=== PATIENT | female | born 1990 | race Caucasian/White ===

== ENCOUNTER → 2018-09-10 | Outpatient (CLI) | payer BC ==
--- NOTE | 2018-09-10 11:17 | Diagnostic Imaging Report ---
INDICATION: survey. TECHNIQUE: Multiple real-time grayscale images were obtained over the gravid uterus. COMPARISON: None FINDINGS: There is a single live fetus in breech presentation. heart rate was recorded at 138 beats per minute. Placenta is posterior. Amniotic fluid index is 13.2 cm. Cervical length is 3.5 cm. survey demonstrates kidneys, bladder and stomach to be unremarkable. The brain is unremarkable. There is a four-chamber heart. There is a three-vessel cord with normal insertion. The spine is unremarkable. Biometrical measurements are as follows: Biparietal 4.68 cm, age 20 weeks 2 days. Head circumference 18.88 cm, age 21 weeks 2 days. Abdominal circumference 16.09 cm, age 21 weeks 2 days. Femur length 3.65 cm, age 21 weeks 5 days. Sonographic estimate age: 21 weeks 1 days. Sonographic estimated date of delivery: 01/20/2019. Estimated Weight: 414 gm (+/- 60 gm). LMP percentile: 77%. heart rate: 138 beats per minute. number: 1 of 1. IMPRESSION: Single live IUP 21 weeks 1 day gestational age. The estimated date of confinement sonographically is 01/20/2019. Dictated by: Dictated on workstation # [id number]
== END ==
LOC: RAD 09:57
PROVIDERS: ATTEND Obstetrics & Gynecology
DX: Z36.89 Encounter for other specified antenatal screening (principal); Z3A.21 21 weeks gestation of pregnancy
CPT/HCPCS: 76805

== ENCOUNTER 2019-01-27 20:00 | Inpatient (IN) | payer BC ==
[~2019-01-27] VITALS: Ht 175.3 cm; Wt 106.7 kg
[~2019-01-27 20:00] MED LIST: D5 LR IV SOLUTION 1,000 ML IV ONE
--- NOTE | 2019-01-27 20:02 | NUR ---
JORGE MIRAMONTES presented to unit via ambulation from home, accompanied by , for INDUCTION. JORGE MIRAMONTES weighed, gowned, voided, and to bed. EFHM and TOCO applied, VS taken. JORGE MIRAMONTES oriented to bed controls, call light, TV, heat, and A/C controls.
[2019-01-27 20:14] VITALS: BP 141/90
[2019-01-27] MEDS ORDERED: PREN1TAB79 PO (20:45)
[2019-01-27] MEDS ORDERED: LACTATED RINGERS 1,000 ML IV SCH (20:48)
[2019-01-27] MEDS ORDERED: MISOPROSTOL 100 MCG (CYTOTEC) TAB PO ONE (21:00)
[2019-01-27] MEDS ORDERED: MINERAL OIL CONCENTRATE 99.9% 15 ML UDC TOP PRN (21:00)
[2019-01-27] MEDS ORDERED: TERBUTALINE INJ 1 MG/ML (BRETHINE) AMP SC PRN (21:00)
[2019-01-27 21:05] LABS: BASOPHILS % (AUTO) 0 % (0-10); EOSINOPHILS # (AUTO) 0.1 10^3/uL (0.0-0.3); EOSINOPHILS % (AUTO) 1 % (0-10); HEMATOCRIT 33 % (35-52); HEMOGLOBIN 11.6 G/DL (11.5-16.0); LYMPHOCYTES # (AUTO) 1.9 X 10^3 (1.0-4.0); LYMPHOCYTES % (AUTO) 16 % (12-44); MEAN CORPUSCULAR HEMOGLOBIN 31 PG (25-34); MEAN CORPUSCULAR HGB CONC 35 G/DL (32-36); MEAN CORPUSCULAR VOLUME 88 FL (80-99); MEAN PLATELET VOLUME 10.3 FL (7.4-10.4); MONOCYTES # (AUTO) 1.2 X 10^3 (0.0-1.0); MONOCYTES % (AUTO) 10 % (0-12); NEUTROPHILS # (AUTO) 8.9 X 10^3 (1.8-7.8); NEUTROPHILS % (AUTO) 73 % (42-75); PLATELET COUNT 229 10^3/uL (130-400); WHITE BLOOD COUNT 12.2 10^3/uL (4.3-11.0)
[2019-01-27 21:10] VITALS: BP 143/90
[2019-01-27] MEDS: D5 LR IV SOLUTION 1,000 ML IV SCH (21:13)
[2019-01-27] MEDS ORDERED: ZOLPIDEM 5 MG (AMBIEN) TAB PO PRN (21:15)
[2019-01-27] MEDS: CATHETER FLUSH 10 ML SYR IV SCH (22:48)
[2019-01-27 22:49] VITALS: BP 122/62
[2019-01-28] VITALS (59 sets, daily range): BP systolic 66–158; BP diastolic 55–90
[2019-01-28] MEDS ORDERED: MISOPROSTOL 100 MCG (CYTOTEC) TAB PO SCH (01:00)
[2019-01-28] MEDS: D5 LR IV SOLUTION 1,000 ML IV SCH ×2 (05:00→13:16)
[2019-01-28] MEDS ORDERED: fentaNYL INJECTION 100 MCG/2 ML AMP IVP PRN (05:15)
--- NOTE | 2019-01-28 05:15 | NUR ---
Dr Ochoa called with report, order for pain medication and light breakfast. Hold cytotec at this time and will re-evaluate after breakfast.
--- NOTE | 2019-01-28 07:00 | NUR ---
REPORT FROM PAU ROSENTHAL.
[2019-01-28] MEDS: CATHETER FLUSH 10 ML SYR IV SCH (07:21)
--- NOTE | 2019-01-28 10:22 | NUR ---
NADIR Munroe called at this time for epidural placement. platelet count reported for director call. fluid bolus 500ml infused now, remaining 500ml should be infused within 10 min. director call states he will be up in a little bit for epidural placement.
--- NOTE | 2019-01-28 11:18 | NUR ---
mohit win called again for epidural placement. audelia will be up for placement in a few minutes.
[2019-01-28] MEDS ORDERED: SUFENTA 0.6MCG/ML BUPIVA 0.125 100 ML ONE (11:23)
--- NOTE | 2019-01-28 11:29 | NUR ---
BBPOLLY CRNA here for epidural placement. Procedure explained, consent reviewed and signed by anesthesia. Questions answered to patient's satisfaction. Time out taken to verify correct patient/procedure. Patient up to side of bed, assisted into sitting position. Betadine prep done x3 and sterile drape applied. Local done, see anesthesia record. Test dose given, see anesthesia record for drug and dosage. Epidural catheter secured in place. Epidural placement complete. Assisted back into bed, monitors adjusted. Epidural dosed, see anesthesia record. Epidural of Sufenta/Bupvicaine @__12____cc/hr stated per pump. Patient tolerated procedure well.
[2019-01-28] MEDS ORDERED: fentaNYL INJECTION 100 MCG/2 ML AMP ONE (11:52)
[2019-01-28] MEDS ORDERED: LIDOCAINE/EPI 2% 1:200,00 (XYLOCAINE) 10 ML VIAL ONE (13:11)
[2019-01-28] MEDS ORDERED: OXYTOCIN/NORMAL SALINE 500 ML IV ONE (13:11)
[2019-01-28] MEDS ORDERED: OXYTOCIN/NORMAL SALINE 500 ML IV SCH ×2 (17:49→21:43)
[2019-01-28] MEDS ORDERED: BENZOCAINE/MENTHOL (DERMOPLAST) 56 ML CAN TP PRN (21:45)
[2019-01-28] MEDS ORDERED: MEASLES,MUMPS,RUBELLA 1 EA INJ SQ ONE (21:45)
[2019-01-28] MEDS ORDERED: DIBUCAINE (NUPERCAINAL) 1% OINT 30 GM TOP PRN (21:45)
[2019-01-28] MEDS ORDERED: TETANUS,DIPTH,PERTUSS P/F (BOOSTRIX) 0.5 ML VIAL IM ONE (21:45)
[2019-01-28] MEDS ORDERED: WITCH HAZEL(TUCKS) 40 EA JAR TOP PRN (21:45)
--- NOTE | 2019-01-28 21:49 | OB Labor & Delivery Record ---
Vag Delivery Note Vag Delivery Note Date of Delivery: 01/28/19 Preoperative Diagnosis: Pamela Oglesby is a 28 /Para 1/0 ,Gestational Age 40 5/7, post dates Postoperative Diagnosis: Same Surgeon: ABEL PARK [employer]: Evie Chandra, MS III Anesthesia: epidural, local Delivery Type: vaginal Findings: Viable male , apgars 9/9, weight 6#8oz Lacerations: 2nd degree laceration with partial capsulotomy Intact placenta with 3 vessel cord. No nuchal cord, body cord or shoulder dystocia Estimated Blood Loss: 200 ml Complications: None Condition: Stable Description of Procedure: The patient is a 28 /Para 1/0 ,Gestational Age 40 5/7 for induction of labor due to post dates. She was admitted and informed consent was obtained. Her labor course was remarkable for misoprostol cervical ripening, AROM and then pitocin after complete dilation. She progressed to complete dilatation and was allowed to labor down and then began to push. She was then set up for delivery. The infant's head was delivered atraumatically in the PURA position. The shoulders and remainder of the 's body were then delivered without difficulty. Upon delivery, the head was held below the level of the perineum and the mouth and nares were bulb suctioned. The cord was doubly clamped and cut and the infant was handed off to the pediatric staff. An intact placenta with 3-vessel cord delivered via Alicia and there was found to be min imal bleeding.~ Vigorous fundal massage was performed and the fundus was found to be firm. IV oxytocin was given. Examination of the vagina and perineum revealed a 2nd degree laceration repaired in the usual fashion with 3-0 vicryl suture. Following the repair, sponge, instrument and needle counts were correct. Mom and baby were both in stable condition in the labor suite. Vitals - Labs Vital Signs - I&O Vital Signs Date Time Temp Pulse Resp B/P (MAP) Pulse Ox O2 Delivery O2 Flow Rate FiO2 01/28/19 05:00 97.6 57 18 136/78 (97) 01/28/19 03:42 61 18 145/90 (108) 01/28/19 00:47 97.3 65 18 138/79 (98) 01/27/19 22:49 66 18 122/62 (82) I & O 01/28/19 07:00 Intake Total 2600 ml Balance 2600 ml ABEL PARK DO January 28, 2019 21:49
[2019-01-28] MEDS ORDERED: CATHETER FLUSH 10 ML SYR IV SCH (22:00)
[2019-01-28] MEDS: IBUPROFEN 600 MG (MOTRIN) TAB PO SCH (22:17)
[2019-01-29] MEDS: ACETAMINOPHEN 500 MG TAB (TYLENOL) PO SCH ×3 (01:08→17:32)
[2019-01-29 03:50] VITALS: BP 118/66
[2019-01-29] MEDS: IBUPROFEN 600 MG (MOTRIN) TAB PO SCH ×3 (03:53→20:46)
[2019-01-29 05:50] LABS: BASOPHILS % (AUTO) 0 % (0-10); EOSINOPHILS % (AUTO) 0 % (0-10); HEMATOCRIT 30 % (35-52); HEMOGLOBIN 10.4 G/DL (11.5-16.0); LYMPHOCYTES # (AUTO) 1.8 X 10^3 (1.0-4.0); LYMPHOCYTES % (AUTO) 10 % (12-44); MEAN CORPUSCULAR HEMOGLOBIN 31 PG (25-34); MEAN CORPUSCULAR HGB CONC 35 G/DL (32-36); MEAN CORPUSCULAR VOLUME 89 FL (80-99); MEAN PLATELET VOLUME 10.5 FL (7.4-10.4); MONOCYTES # (AUTO) 1.5 X 10^3 (0.0-1.0); MONOCYTES % (AUTO) 8 % (0-12); NEUTROPHILS # (AUTO) 15.2 X 10^3 (1.8-7.8); NEUTROPHILS % (AUTO) 82 % (42-75); PLATELET COUNT 180 10^3/uL (130-400); RED CELL DISTRIBUTION WIDTH 12.5 % (10.0-14.5); WHITE BLOOD COUNT 18.5 10^3/uL (4.3-11.0)
--- NOTE | 2019-01-29 07:00 | NUR ---
REPORT FROM MORELIA ROSENTHAL.
[2019-01-29] MEDS: FERROUS SULF 325 MG (IRON) TAB PO SCH (08:39)
[2019-01-29] MEDS: DOCUSATE SODIUM 100 MG (COLACE) CAP PO SCH ×2 (08:39→20:46)
--- NOTE | 2019-01-29 09:10 | NUR ---
INITIAL ASSESSMENT COMPLETED, VSS, PT SITTING UP ON SIDE ON BED WORKING ON WITH ASHELY LIM RN. PT VERBALIZES UNDERSTANDING OF PLAN OF CARE, NO QUESTIONS NOTED.
[2019-01-29 09:15] VITALS: BP 166/95
--- NOTE | 2019-01-29 09:28 | NUR ---
IV HEP LOCK REMOVED ALONG WITH EPIDURAL CATHETER, PT UP TO SHOWER, S/O IN BED WITH .
--- NOTE | 2019-01-29 10:36 | Anesthesia-Regional Post-Op ---
Regional Patient Condition Mental Status: Alert, Oriented x3 Circulation: Same as Pre-Op Headache: Absent Sensation: Full Recovery Motor Block: Absent Post Op Complications Complications None Follow Up Care/Instructions Patient Instructions None needed. Anesthesia/Patient Condition Patient is doing well, no complaints, stable vital signs, no apparent adverse anesthesia problems. No complications reported per nursing. MADELIN BARRAGAN CRNA Jan 29, 2019 10:36
--- NOTE | 2019-01-29 11:35 | Postpartum Progress Note ---
Note Note Day # 1 s/p Subjective: Patient is without complaints. Ambulating, voiding. Tolerating a regular diet w ithout nausea or vomiting. Normal lochia. Pain is well controlled with oral pain medications. breast feeding. Objective: Laboratory Tests Test 01/29/19 05:23 Range/Units White Blood Count 18.5 H 4.3-11.0 10^3/uL Red Blood Count 3.34 L 4.35-5.85 10^6/uL Hemoglobin 10.4 L 11.5-16.0 G/DL Hematocrit 30 L 35-52 % Mean Corpuscular Volume 89 80-99 FL Mean Corpuscular Hemoglobin 31 25-34 PG Mean Corpuscular Hemoglobin Concent 35 32-36 G/DL Red Cell Distribution Width 12.5 10.0-14.5 % Platelet Count 180 130-400 10^3/uL Mean Platelet Volume 10.5 H 7.4-10.4 FL Neutrophils (%) (Auto) 82 H 42-75 % Lymphocytes (%) (Auto) 10 L 12-44 % Monocytes (%) (Auto) 8 0-12 % Eosinophils (%) (Auto) 0 0-10 % Basophils (%) (Auto) 0 0-10 % Neutrophils # (Auto) 15.2 H 1.8-7.8 X 10^3 Lymphocytes # (Auto) 1.8 1.0-4.0 X 10^3 Monocytes # (Auto) 1.5 H 0.0-1.0 X 10^3 Eosinophils # (Auto) 0.0 0.0-0.3 10^3/uL Basophils # (Auto) 0.0 0.0-0.1 10^3/uL 01/29/19 01/29/19 03:50 09:15 Temp 98.5 97.8 Pulse 64 61 Resp 18 18 B/P (MAP) 118/66 (83) 166/95 (118) Pulse Ox 98 99 01/29/19 00:00 Intake Total 2800 ml Balance 2800 ml Physical Exam: General - Alert and oriented, no apparent distress Abdomen - Soft, appropriately tender to palpation, non-distended, fundus firm at umbilicus Extremities - no edema, negative Murphy's bilaterally Assessment: 1. post- day # 1, status post vaginal delivery. Recovering well, hemodynamically stable Plan: Routine care. Encourage breast feeding. Encourage ambulation. Ferrous sulfate supplementation. Plan for discharge tomorrow Vitals - Labs Vital Signs - I&O Vital Signs Date Time Temp Pulse Resp B/P (MAP) Pulse Ox O2 Delivery O2 Flow Rate FiO2 01/29/19 09:15 97.8 61 18 166/95 (118) 99 01/29/19 03:50 98.5 64 18 118/66 (83) 98 01/28/19 23:30 97.4 71 18 139/75 (96) 01/28/19 23:27 68 18 135/69 (91) 01/28/19 23:12 73 18 136/67 (90) 01/28/19 22:57 75 18 138/64 (88) 01/28/19 22:42 76 18 144/69 (94) 01/28/19 22:22 97.2 70 18 136/70 (92) 01/28/19 21:47 97.8 76 18 122/75 (91) 01/28/19 21:30 98.4 86 18 130/78 (95) 01/28/19 20:58 79 18 98 01/28/19 20:45 86 18 98 01/28/19 20:30 72 18 156/72 (100) 97 01/28/19 20:15 75 18 142/71 (94) 98 01/28/19 20:00 84 18 145/61 (89) 100 01/28/19 19:45 75 18 131/79 (96) 99 01/28/19 19:30 74 18 158/70 (99) 100 01/28/19 19:15 98.2 72 18 131/72 (91) 99 I & O 01/29/19 07:00 Intake Total 2800 ml Balance 2800 ml Labs Laboratory Tests 01/29/19 05:23: White Blood Count 18.5H, Red Blood Count 3.34L, Hemoglobin 10.4L, Hematocrit 30L , Mean Corpuscular Volume 89, Mean Corpuscular Hemoglobin 31, Mean Corpuscular Hemoglobin Concent 35, Red Cell Distribution Width 12.5, Platelet Count 180, Mean Platelet Volume 10.5H, Neutrophils (%) (Auto) 82H, Lymphocytes (%) (Auto) 10L, Monocytes (%) (Auto) 8, Eosinophils (%) (Auto) 0, Basophils (%) (Auto) 0, Neutrophils # (Auto) 15.2H, Lymphocytes # (Auto) 1.8, Monocytes # (Auto) 1.5H, Eosinophils # (Auto) 0.0, Basophils # (Auto) 0.0 ABEL PARK DO Jan 29, 2019 11:35
[2019-01-29] MEDS ORDERED: ACET-77 PO (11:38)
[2019-01-29] MEDS ORDERED: DIBU30OI TOP (11:38)
[2019-01-29] MEDS ORDERED: DOCU-143 PO (11:38)
[2019-01-29] MEDS ORDERED: OXYC-529 PO (11:38)
[2019-01-29] MEDS ORDERED: IBUP-844 PO (11:38)
[2019-01-29 14:00] VITALS: BP 140/68
[2019-01-29] MEDS: PRENATAL VITAMIN 1 EA TAB PO SCH (17:31)
--- NOTE | 2019-01-29 17:41 | NUR ---
PT SITTING ON SIDE OF BED, ASHELY LIM RN AT SIDE ASSISTING WITH LATCH OF , MOTHER PLEASED, NO DISTRESS NOTED, SCHEDULED TYLENOL GIVEN.
--- NOTE | 2019-01-29 19:11 | NUR ---
REPORT TO VIBHA ROSENTHAL.
[2019-01-29] MEDS ORDERED: IBUPROFEN 600 MG (MOTRIN) TAB PO ONE (20:24)
[2019-01-29 20:45] VITALS: BP 136/72
--- NOTE | 2019-01-29 20:45 | NUR ---
Stork meal done.
[2019-01-30 01:55] VITALS: BP 135/81
[2019-01-30] MEDS: ACETAMINOPHEN 500 MG TAB (TYLENOL) PO SCH ×3 (01:57→13:31)
[2019-01-30] MEDS: IBUPROFEN 600 MG (MOTRIN) TAB PO SCH ×2 (01:58→08:30)
--- NOTE | 2019-01-30 04:18 | NUR ---
infant taken back to pt, pt denies needs at this time.
--- NOTE | 2019-01-30 07:00 | NUR ---
REPORT RECEIVED FROM VIBHA ROSENTHAL.
[2019-01-30 08:00] VITALS: BP 144/79
[2019-01-30] MEDS: DOCUSATE SODIUM 100 MG (COLACE) CAP PO SCH (08:30)
[2019-01-30] MEDS: FERROUS SULF 325 MG (IRON) TAB PO SCH (08:30)
[2019-01-30] MEDS: PRENATAL VITAMIN 1 EA TAB PO SCH (08:30)
--- NOTE | 2019-01-30 09:40 | Discharge Inst-Women's Service ---
Discharge Inst-Women's Serv Depart Medication/Instructions New, Converted or Re-Newed RX: Call to Patients Pharmacy Final Diagnosis post dates epidural vaginal delivery Consults/Follow Up Additional Follow Up: Yes (7-10 days for BP check and perineal exam) Activity Activity: Activity as Tolerated Driving Instructions: You May Drive NO SMOKING: NO SMOKING Nothing Inside Vagina: No Douching, No Spiro, No Tampons Diet Discharge Diet: No Restrictions Symptoms to Report to : Bleeding Excessive, Pain Increased, Fever Over 101 Degrees F, Vaginal Bleeding Increase, Cramps in Feet or Legs, Vaginal Discharge Foul For Any Problems or Questions: Contact Your Physician ABEL PARK DO Jan 30, 2019 09:40
--- NOTE | 2019-01-30 11:44 | NUR ---
DR PARK CALLED, NEW ORDERS RECEIVED TO D/C PT HOME.
[2019-01-30 14:00] VITALS: BP 133/74
--- NOTE | 2019-01-30 15:15 | NUR ---
D/C INSTRUCTIONS EXPLAINED, SIGNED, NO QUESTIONS OR CONCERNS NOTED, PT VERBALIZES UNDERSTANDING OF FOLLOW UP CARE AND INSTRUCTIONS.
--- NOTE | 2019-01-30 16:15 | NUR ---
PT DISCHARGED TO HOME, AMBULATED TO PRIVATE CAR WITH S/O AT SIDE, INFANT SECURED IN REAR FACING CARSEAT NO DISTRESS NOTED.
== END 2019-01-30 16:15 | disposition home or self-care (01) | DRG 807 ==
LOC: LDRP 20:00
PROVIDERS: ADMIT Obstetrics & Gynecology; ATTEND Obstetrics & Gynecology
PROC: 10E0XZZ Delivery of Products of Conception, External Approach (ICD-10-PCS; principal; 2019-01-28)
PROC: 0KQM0ZZ Repair Perineum Muscle, Open Approach (ICD-10-PCS; 2019-01-28)
DX: O48.0 Post-term pregnancy (principal); O70.1 Second degree perineal laceration during delivery; Z37.0 Single live birth; Z3A.40 40 weeks gestation of pregnancy
CPT/HCPCS: 36415; 85025; 86850; 86900; 86901

== ENCOUNTER → 2022-03-21 | Outpatient (CLI) | payer BC ==
[~2022-03-21] MED LIST changes: +ACET-78 PO; -D5 LR IV SOLUTION 1,000 ML IV ONE; +DIBU30OI TOP; +DOCU-143 PO; +IBUP-844 PO; +OXC5T PO; +PREN1TAB79 PO
--- NOTE | 2022-03-21 14:35 | Diagnostic Imaging Report ---
INDICATION: survey. TECHNIQUE: Multiple real-time grayscale images were obtained over the gravid uterus. COMPARISON: None. FINDINGS: There is a single live fetus in a variable presentation. heart rate was recorded at 150 BPM. Placenta is anterior. The amniotic fluid volume is normal. Cervical length is 5.1 cm. survey demonstrates kidneys, bladder, and stomach to be unremarkable. brain is unremarkable. There is a four-chamber heart. There is a three-vessel cord with normal insertion. The spine is unremarkable. Biometrical measurements are as follows: Biparietal 5.06 cm, age 21 weeks 3 days. Head circumference 19.26 cm, age 21 weeks 4 days. Abdominal circumference 16.41 cm, age 21 weeks 4 days. Femur length 3.67 cm, age 21 weeks 5 days. Sonographic estimate age: 21 weeks 4 days. Sonographic estimated date of delivery: 07/28/2022. Estimated Weight: 432 gm (+/- 63 gm). LMP percentile: 29%. heart rate: 150 beats per minute. number: 1 of 1. IMPRESSION: Single live IUP of 21 weeks 4 days gestational age. Estimated date of confinement sonographically is 07/28/2022. Dictated by: Dictated on workstation # [id number]
== END ==
LOC: RAD 12:00
PROVIDERS: ATTEND Nurse Practitioner Women's Health
DX: Z34.02 Encounter for supervision of normal first pregnancy, second trimester (principal); Z3A.21 21 weeks gestation of pregnancy
CPT/HCPCS: 76805